=== PATIENT | male | born 1965 | race Caucasian/White ===

== ENCOUNTER 2018-01-31 15:56 | Emergency (ER) | payer OTHER ==
--- NOTE | 2018-01-31 17:40 | EDM.PDOC ---
ED HPI GENERAL MEDICAL PROBLEM - General Chief Complaint: General Stated Complaint: SHARP PAIN UNDER RT EYE Time Seen by Provider: 01/31/18 17:20 Source of Information: Reports: Patient History Limitations: Reports: No Limitations - History of Present Illness INITIAL COMMENTS - FREE TEXT/NARRATIVE: 52-year-old male who has had sharp pain around his right eye, the right cheek and the right maxillary area of the skull for the past several days. He is now developed a slight amount of periorbital edema but no fever. He does have nasal congestion. He has increased pain if he pushes on the gums of the right upper maxilla, he has no teeth. No nausea or vomiting, no cough. Onset: Gradual (Over the past week) Location: Reports: Face (Right side) Associated Symptoms: Denies: Cough, Fever/Chills, Headaches, Malaise, Nausea/ Vomiting, Shortness of Breath - Related Data Allergies Allergy/AdvReac Type Severity Reaction Status Date / Time No Known Allergies Allergy Verified 01/31/18 17:17 Home Meds: Home Meds Aspirin 01/31/18 [History] Lisinopril 01/31/18 [History] Past Medical History Cardiovascular History: Reports: Hypertension - Past Surgical History Musculoskeletal Surgical History: Reports: Arthroscopic Knee Social & Family History - Tobacco Use Smoking Status *Q: Current Every Day Smoker Years of Tobacco use: 34 Packs/Tins Daily: 1 ED ROS GENERAL - Review of Systems Review Of Systems: See Below Constitutional: Denies: Fever, Chills HEENT: Reports: Rhinitis, Sinus Problem (Pressure and pain in the right maxillary sinus) Respiratory: Denies: Shortness of Breath GI/Abdominal: Denies: Nausea, Vomiting ED EXAM, GENERAL - Physical Exam Exam: See Below Exam Limited By: No Limitations General Appearance: Alert, No Apparent Distress Eye Exam: Right Eye: Periorbital Changes (Patient has some very slight periorbital edema) Head: Atraumatic, Sinus Tenderness (He does have tenderness to percussion over the right maxillary sinus) Respiratory/Chest: No Respiratory Distress, Lungs Clear Course - Vital Signs Last Recorded V/S: Last Vital Signs Temp 96.5 F 01/31/18 17:23 Pulse 86 01/31/18 17:23 Resp 14 01/31/18 17:23 BP 154/98 H 01/31/18 17:23 Pulse Ox 98 01/31/18 17:23 - Re-Assessments/Exams Free Text/Narrative Re-Assessment/Exam: 01/31/18 17:38 Patient has pain over the right maxillary sinus but also the facial nerve on the right side. Return to place him on Augmentin 875 mg twice daily and also place him on 60 mg of prednisone daily for the next 3-6 days. He'll recheck in 48-72 hours if not improving. Departure - Departure Time of Disposition: 17:49 Disposition: Home, Self-Care 01 Condition: Good Clinical Impression: Sinusitis, acute Qualifiers: Sinusitis location: maxillary Recurrence: non-recurrent Qualified Code(s): J01.00 - Acute maxillary sinusitis, unspecified - Discharge Information Instructions: Sinusitis, Adult, [id number] Referrals: PCP,None [Primary Care Provider] - Forms: ED Department Discharge Care Plan Goals: Take antibiotic with food twice daily for at least 7 days if improving, and take 6 pills of prednisone also with food once a day for the next 3-5 days. Recheck in 48 hours if not improving satisfactorily.
== END 2018-01-31 17:49 | disposition home or self-care (01) ==
LOC: JP.ED 15:56
DX: J01.00 Acute maxillary sinusitis, unspecified (principal); F17.210 Nicotine dependence, cigarettes, uncomplicated; Z79.82 Long term (current) use of aspirin
CPT/HCPCS: 99283

== ENCOUNTER 2019-08-15 08:20 | Day surgery (SDC) | payer MEDICAID, OTHER ==
[~2019-08-15 08:20] MED LIST: Bupivacaine 0.5% 50 ML MDV ONE; Lidocaine 1% 50 ML MDV ONE; Lidocaine 1% with EPINEPHrine 1:100,000 50 ML MDV ONE; Midazolam 1 MG/ML 2 ML SDV ONE; Propofol 200 MG/20 ML SDV ONE; fentaNYL 100 MCG/2 ML SDV ONE
[2019-08-15] MEDS ORDERED: Dextrose 5%-Lactated Ringers 1,000 ML IV SCH (09:00)
[2019-08-15] MEDS ORDERED: ceFAZolin 2 GM in Premix Bag 1 BAG IV ONE (09:30)
[2019-08-15] MEDS ORDERED: Bacitracin Oint 1 GM U/D Packet ONE (10:35)
[2019-08-15] MEDS ORDERED: Propofol 200 MG/20 ML SDV ONE (10:48)
--- NOTE | 2019-08-22 08:32 | OR ---
DATE OF PROCEDURE: 08/15/2019 SURGEON: Kavon Gómez MD PREOPERATIVE DIAGNOSIS: Epidermoid cyst involving the left sikhism and right anterior chest wall. POSTOPERATIVE DIAGNOSIS: Epidermoid cyst involving the left sikhism and right anterior chest wall. OPERATIVE PROCEDURES: 1. Excision of epidermoid cyst, left sikhism area with layered closure ([id number]). 2. Excision of epidermoid cyst, right anterior chest wall with layered closure ([id number], [id number]). ANESTHESIA: Local plus IV sedation. INDICATIONS FOR PROCEDURE: The patient presents with a large epidermoid cyst in the left sikhism area as what appear to be clinically 2 smaller cysts or a double type cyst in the anterior chest wall. Plan is to proceed with excision of these with primary closure. Potential risks of the procedure including bleeding and infection were reviewed, and the patient wishes to proceed. DETAILS OF PROCEDURE: The patient was taken to the operating room and placed in a supine position. Two areas of concern were then prepped and draped and anesthetized with 1% lidocaine mixed with Marcaine. Initially, the left sikhism area was addressed. An elliptical incision in the lines of skin creases was made, carried down through the skin and subcutaneous tissue. The cyst was then removed and delivered from the field in an intact manner. The deeper soft tissues were approximated with some 5-0 Vicryl stitch and the skin with a 5- 0 Prolene stitch. The incision with margin length in this case was 4.0 cm and the incision length 4.4 cm. Attention was then taken to the right anterior chest wall area. Transversely-oriented elliptical incision was made around here and the lesion was removed intact again and closure was as per the temporal area. In this case, the lesion with margin length was 2.1 cm and the incision length 4.0 cm. Dressings were applied. The patient was taken to the recovery room in satisfactory condition. Kavon Gómez MD /[id number]
== END 2019-08-15 12:50 | disposition home or self-care (01) ==
LOC: JP.SDS 08:20
PROVIDERS: ATTEND Surgery
DX: L72.0 Epidermal cyst (principal); I10 Essential (primary) hypertension; E78.5 Hyperlipidemia, unspecified; Z91.09 Other allergy status, other than to drugs and biological substances
CPT/HCPCS: 88304; J0690; J2001; J2250; J2704; J3010; J3490; J7121

== ENCOUNTER 2021-02-16 19:14 | Emergency (ER) | payer MEDICAID ==
[2021-02-16] MEDS ORDERED: Ondansetron 4 MG/2 ML SDV ONE (19:16)
[2021-02-16] MEDS ORDERED: Ondansetron 4 MG/2 ML SDV IVPUSH ONE (19:29)
--- NOTE | 2021-02-16 20:34 | EDM.PDOC ---
<Renate Chapraro - Last Filed: 02/16/21 20:28> ED HPI GENERAL MEDICAL PROBLEM - General Chief Complaint: Gastrointestinal Problem Stated Complaint: DIZZY/FELL Time Seen by Provider: 02/16/21 20:10 Source of Information: Reports: Patient (2007), Family, RN History Limitations: Reports: No Limitations - History of Present Illness INITIAL COMMENTS - FREE TEXT/NARRATIVE: Patient fell at home after becoming dizzy. He did hit his head he did not cause injury he did not have loss of consciousness. Patient has not had any symptoms like this in the past he has not had any sick contacts. This was sudden onset. He does state he recently started having migraines in the last few months. He states this is nothing like the migraines that he has had. He is not currently sensitive to light or sound however he is sensitive to his own movement causes him to be dizzy. He has had Zofran 4 mg from the ambulance crew and he received 4 mg of Zofran on arrival. He has not had an emesis since receiving the second dose of Zofran. Onset: Today, Sudden Onset Time: 17:00 Duration: Constant Location: Reports: Head (Sudden onset nausea vomiting Caused by dizziness.), Abdomen Quality: Reports: Other Severity: Severe Improves with: Reports: Rest Worsens with: Reports: Movement Context: Reports: Other Associated Symptoms: Reports: Nausea/Vomiting, Syncope (Syncope versus dizziness). Denies: Headaches - Related Data Allergies Allergy/AdvReac Type Severity Reaction Status Date / Time nicotine Allergy Rash Verified 02/16/21 19:21 Home Meds: Home Meds Aspirin 81 mg PO DAILY 01/31/18 [History] Lisinopril 10 mg PO DAILY 01/31/18 [History] Past Medical History HEENT History: Reports: Other (See Below) Other HEENT History: wears glasses Cardiovascular History: Reports: Hypertension Dermatologic History: Reports: Other (See Below) Other Dermatologic History: "rash - I've had that for years" - Infectious Disease History Infectious Disease History: Reports: Chicken Pox - Past Surgical History HEENT Surgical History: Reports: Oral Surgery Male Surgical History: Reports: Vasectomy Musculoskeletal Surgical History: Reports: Arthroscopic Knee Social & Family History - Tobacco Use Tobacco Use Status *Q: Current Every Day Tobacco User Years of Tobacco use: 35 Packs/Tins Daily: 1.5 - Caffeine Use Caffeine Use: Reports: Soda ED ROS GENERAL - Review of Systems Review Of Systems: See Below Constitutional: Reports: No Symptoms HEENT: Reports: No Symptoms Respiratory: Reports: No Symptoms Cardiovascular: Reports: No Symptoms Endocrine: Reports: No Symptoms GI/Abdominal: Reports: Nausea, Vomiting : Reports: No Symptoms Musculoskeletal: Reports: No Symptoms Skin: Reports: Dryness Neurological: Reports: Dizziness. Denies: Headache, Numbness, Tremors Psychiatric: Reports: No Symptoms Hematologic/Lymphatic: Reports: No Symptoms Immunologic: Reports: No Symptoms ED EXAM, GI/ABD - Physical Exam Exam: See Below Exam Limited By: No Limitations General Appearance: Alert, Moderate Distress Head: Atraumatic, Normocephalic. No: Facial Swelling, Facial Tenderness Neck: Normal Inspection, Supple, Non-Tender Respiratory/Chest: No Respiratory Distress, Lungs Clear, Normal Breath Sounds, No Accessory Muscle Use Cardiovascular: Normal Peripheral Pulses, Regular Rate, Rhythm, No Edema GI/Abdominal Exam: Normal Bowel Sounds, Soft, Non-Tender, No Organomegaly, No Distention, No Abnormal Bruit, No Mass Back Exam: Normal Inspection, Full Range of Motion Extremities: Normal Inspection, Normal Range of Motion Neurological: Alert, Oriented Psychiatric: Normal Affect, Normal Mood Skin Exam: Warm, Dry, Intact Departure - Departure Disposition: Home, Self-Care 01 Clinical Impression: Vertigo, Nausea & vomiting - Discharge Information Instructions: Nausea and Vomiting, Adult, Vertigo, [id number] Referrals: PCP,None [Primary Care Provider] - Forms: ED Department Discharge Additional Instructions: Sure that you are drinking plenty of fluids to stay well-hydrated this would include water or juice sports drinks of choice, their options include soup Jell- O and popsicles. Advance diet slowly as tolerated. Symptoms are consistent with of vertigo induced nausea and vomiting. I have provided you with nausea medication tonight to take home from the [facility] tomorrow you have a prescription that you can take to pharmacy of choice for Antivert or meclizine which is used to treat vertigo as well as nausea and vomiting Recommended that you follow-up with your primary care provider/family practice physician in the next 3 to 5 days regarding today's ER visit any further concerns. If you have worsening symptoms then please return to the emergency room for further evaluation and care Sepsis Event Note (ED) - Evaluation Sepsis Screening Result: No Definite Risk <Corina Fernandez - Last Filed: 02/17/21 00:37> Course - Vital Signs Last Recorded V/S: Last Vital Signs Temp 96.8 F L 02/16/21 22:14 Pulse 87 02/16/21 22:14 Resp 18 02/16/21 19:28 BP 143/94 H 02/16/21 22:14 Pulse Ox 97 02/16/21 22:14 - Orders/Labs/Meds Orders: Active Orders 24 hr Category Date Time Status CXR [Chest 1V Frontal] [CR] Stat Exams 02/16/21 22:20 Taken Isolation [COMM] Routine Oth 02/16/21 20:44 Ordered Labs: Laboratory Tests 02/16/21 02/16/21 02/16/21 Range/Units 20:45 21:08 21:08 WBC 17.3 H (4.5-11.0) K/uL RBC 5.31 (4.30-5.90) M/uL Hgb 16.7 H (12.0-15.0) g/dL Hct 48.7 (40.0-54.0) % MCV 92 (80-98) fL MCH 32 H (27-31) pg MCHC 34 (32-36) % Plt Count 198 (150-400) K/uL Neut % (Auto) 71.3 H (36-66) % Lymph % (Auto) 19.1 L (24-44) % [place] % (Auto) 6.9 H (2-6) % Eos % (Auto) 2.1 (2-4) % Baso % (Auto) 0.6 (0-1) % Sodium 135 L (140-148) mmol/L Potassium 3.6 (3.6-5.2) mmol/L Chloride 102 (100-108) mmol/L Carbon Dioxide 25 (21-32) mmol/L Anion Gap 11.6 (5.0-14.0) mmol/L BUN 14 (7-18) mg/dL Creatinine 1.2 (0.8-1.3) mg/dL Est Cr Clr Drug Dosing 71.19 mL/min Estimated GFR (MDRD) > 60 (>60) Glucose 119 H (74-106) mg/dL Calcium 8.8 (8.5-10.1) mg/dL SARS-CoV-2 RNA (ANGEL) Negative (NEGATIVE) Meds: Medications Discontinued Medications Generic Name Dose Route Start Last Admin Trade Name Amrik PRN Reason Stop Dose Admin Diphenhydramine HCl 25 mg 02/16/21 22:25 02/16/21 22:41 Diphenhydramine 50 Mg/Ml Sdv IVPUSH 02/16/21 22:26 25 mg ONETIME ONE Administration Prochlorperazine Edisylate 5 51 mls @ 150 mls/hr 02/16/21 22:25 mg/ Sodium Chloride IV 02/16/21 22:45 ONETIME ONE Sodium Chloride 1,000 mls @ 999 mls/hr 02/16/21 22:27 02/16/21 22:42 Normal Saline IV 02/16/21 23:27 999 mls/hr .BOLUS ONE Administration Lorazepam 0.5 mg 02/16/21 20:51 02/16/21 21:06 Lorazepam 2 Mg/Ml Sdv IVPUSH 02/16/21 20:52 0.5 mg ONETIME ONE Administration Ondansetron HCl 4 mg 02/16/21 19:29 02/16/21 19:31 Ondansetron 4 Mg/2 Ml Sdv IVPUSH 02/16/21 19:30 4 mg ONETIME ONE Administration Prochlorperazine Edisylate 5 mg 02/16/21 22:30 02/16/21 22:42 Prochlorperazine 10 Mg/2 Ml Sdv IVPUSH 02/16/21 22:31 5 mg ONETIME ONE Administration - Radiology Interpretation Free Text/Narrative:: 0020--received report from Asiya Chaparro NP at change of shift/transfer of care. CT abd/pelvis result is pending at this time. chest film preliminary re ading no acute process, final radiology reading is pending. Patient is sleeping, no further nausea/vomiting, dizzy episodes since receiving benadryl & compazine. 0030--CT abdomen pelvis faxed report has been received impression #1 no acute abnormality identified no cause for patient's symptoms is demonstrated #2 nonacute findings as detailed by above please see full report for further details. Nonacute finding is likely adrenal indeterminate 13 x 10 mm right adrenal nodule most likely representing that adenoma unremarkable left adrenal gland. In room to d/w patient CT findings. recommendation to d/c with meclizine (Antivert) for vertigo/nausea. Ensure drinking plenty of fluids to stay well hydrated, diet advance as tolerated. follow up with PCM next 3-5 days regarding today's ER visit, return to the ER if worsening symptoms of concern Departure - Departure Time of Disposition: 00:34 Condition: Good - Discharge Information *PRESCRIPTION DRUG MONITORING PROGRAM REVIEWED*: Not Applicable *COPY OF PRESCRIPTION DRUG MONITORING REPORT IN PATIENT LACI: Not Applicable Sepsis Event Note (ED) - Focused Exam Vital Signs: Vital Signs Temp Pulse Resp BP Pulse Ox 02/16/21 22:14 96.8 F L 87 143/94 H 97 02/16/21 20:57 74 146/87 H 02/16/21 19:28 97.6 F 82 18 170/108 H 98
[2021-02-16] MEDS ORDERED: LORazepam 2 MG/ML SDV IVPUSH ONE (20:51)
--- NOTE | 2021-02-16 22:16 | CRLCT ---
For Patients: As a result of the Cures Act, medical imaging exams and procedure reports are released immediately into your electronic medical record. You may view this report before your referring provider. If you have questions, please contact your health care provider. INDICATION: Dizziness, Rapid onset dizziness with vomiting per patient TECHNIQUE: CT Head without i.v. contrast. Coronal and sagittal reformats were obtained. COMPARISON: None FINDINGS: CSF space: The ventricles are normal for age. Brain: No evidence of mass, acute infarction or hemorrhage is seen. No mass-effect or midline shift is seen. The brain parenchyma is otherwise normal in appearance with preservation of the hebert-white matter junction. Calvarium: The visualized paranasal sinuses are well aerated. The mastoid air cells are clear. The visualized orbits are grossly unremarkable. The calvarium is unremarkable in appearance with no fractures identified. IMPRESSION: 1. No evidence of acute infarction, intracranial hemorrhage, or mass-effect seen. Please note that all CT scans at this facility use dose modulation, iterative reconstruction, and/or weight-based dosing when appropriate to reduce radiation dose to as low as reasonably achievable. Dictated by: Ambrosio Russo MD @ 02/16/2021 22:15:32 (Electronically Signed)
[2021-02-16] MEDS ORDERED: diphenhydrAMINE 50 MG/ML SDV IVPUSH ONE (22:25)
[2021-02-16] MEDS ORDERED: Prochlorperazine 5 MG in Sodium Chloride 0.9% 50 ML IV ONE (22:25)
[2021-02-16] MEDS ORDERED: Sodium Chloride 0.9% 1,000 ML IV ONE (22:27)
[2021-02-16] MEDS ORDERED: Prochlorperazine 10 MG/2 ML SDV IVPUSH ONE (22:30)
--- NOTE | 2021-02-17 00:28 | CRLCT ---
For Patients: As a result of the Century Cures Act, medical imaging exams and procedure reports are released immediately into your electronic medical record. You may view this report before your referring provider. If you have questions, please contact your health care provider. INDICATION: Abdominal pain. CT ABDOMEN AND PELVIS WITHOUT CONTRAST TECHNIQUE: Multidetector CT imaging was performed through the abdomen and pelvis without intravenous contrast administration. Coronal and sagittal reconstructions were generated. COMPARISON: None. FINDINGS: Lower chest: [id number] bibasilar lung atelectasis and/or fibrosis. Liver: Within normal limits. Gallbladder and bile ducts: Nonspecific moderate distention of the gallbladder. No gallbladder wall thickening or calcified gallstones. No biliary dilation identified. Pancreas: Unremarkable. Spleen: Normal. Adrenals: Indeterminate 13 x 10 millimeter right adrenal nodule, most likely representing an adenoma. Unremarkable left adrenal. Kidneys, ureters, and urinary bladder: No urinary tract stones identified. No renal masses or hydronephrosis. No bladder mass or definite wall thickening. Gastrointestinal tract: Normal caliber bowel without wall thickening or obstruction. The appendix is normal. Vascular structures: Mild to moderate aortoiliac atherosclerotic calcifications. Peritoneum: No free air, abscess, or significant free fluid. Lymph nodes: No pathologically enlarged nodes identified. Reproductive organs: No pelvic masses. Bones: Mild spinal degenerative changes. IMPRESSION: 1. No acute abnormality identified. No cause for the patient`s symptoms is demonstrated. 2. Nonacute findings as detailed above. JACKLYN FELDER MD [facility] Dictated by Kael Felder MD @ 02/17/2021 12:26:05 AM Please note that all CT scans at this facility use dose modulation, iterative reconstruction, and/or weight-based dosing when appropriate to reduce radiation dose to as low as reasonably achievable. Dictated by: Kael Felder MD @ 02/17/2021 00:26:29 (Electronically Signed)
--- NOTE | 2021-02-18 09:46 | CR ---
CHEST: 02/16/2021 at 10:59 PM CLINICAL HISTORY:Elevated white count COMPARISON:None FINDINGS: Heart size and pulmonary vascular are normal. There is some mild patchy density in both lung bases. No effusions are seen. Impression: Mild patchy bibasal densities are suspect for pneumonitis. If clinically relevant, upright two-view chest would be helpful
== END 2021-02-17 01:03 | disposition home or self-care (01) ==
LOC: JP.ED 19:14
DX: R42 Dizziness and giddiness (principal); R11.2 Nausea with vomiting, unspecified; I10 Essential (primary) hypertension; Z20.822 Contact with and (suspected) exposure to COVID-19; Z88.4 Allergy status to anesthetic agent; Z79.82 Long term (current) use of aspirin; Z79.899 Other long term (current) drug therapy; Z72.0 Tobacco use
CPT/HCPCS: 36415; 70450; 71045; 74176; 80048; 85025; 87635; 87804; 96374; 96375; 99284; J0780; J1200; J2060; J2405; J7030; U0002